=== PATIENT | female | born 1980 ===

== ENCOUNTER 2017-02-11 20:48 | Emergency (ER) | payer MEDICAID, OTHER ==
[2017-02-11 21:11] VITALS: BP 110/87; PULSE 89; RESP 16; TEMP 98.6; O2SAT 98
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
== END 2017-02-11 22:22 | disposition home or self-care (01) ==
LOC: H.ER 20:48
DX: M54.5 Low back pain (principal)